=== PATIENT | female | born 1975 | race Two or more races ===

== ENCOUNTER 2018-05-08 19:34 | Emergency (ER) | payer OTHER ==
--- NOTE | 2018-05-08 19:37 | PDOC ---
History of Present Illness - History of Present Illness Initial Comments: 05/08/18 20:03 The patient is a 43 year old female with a significant past medical history of arthritis who presents to the ER with a rash for the past month. Patient states she was taking arthritis medication but stopped taking it two months ago. Patient also saw an operator helper within the past month who told her the only allergy he found was to pollen. Patient has been using claritin at home with minimal improvement. Patient has not returned to the operator helper for a follow up. Patient was seen at an urgent care in [place] yesterday but could not determine what may be causing the rash. The urgent care sent a prescription for prednisone to her pharmacy which she has not picked up yet. The patient denies chest pain, shortness of breath, headache, and dizziness. Denies fever, chills, nausea, vomit, diarrhea, and constipation. Denies dysuria, frequency, urgency, and hematuria. Allergies: NKA Past surgical history: None reported. Social history: No reported alcohol, drug, or cigarette use. Adult ROS General: No fevers or chills, no weakness, no weight loss HEENT: No change in vision. No sore throat,. No ear pain CardioVascular: No chest pain or shortness of breath Respiratory:No cough, or wheezing. Gastrointestinal: no nausea, vomiting, diarrhea or constipation, No rectal bleeding Genitourinary: No dysuria, hematuria, or frequency Musculoskeletal: No joint or muscle pain or swelling Neurologic: No headache, vertigo, dizziness or loss of consciousness Psychiatric: nor depression Skin: (+) Rash. No easy bruising Endocrine: no increased thirst or abnormal weight change Allergic: no skin or latex allergy All other systems reviewed and normal Basic PE GENERAL: The patient is awake, alert, and fully oriented, in no acute distress. HEAD: Normal with no signs of trauma. EYES: Pupils equal, round and reactive to light, extraocular movements intact, sclera anicteric, conjunctiva clear. EXTREMITIES: Normal range of motion, no edema. NEUROLOGICAL: Normal speech, normal gait. PSYCH: Normal mood, normal affect. SKIN: Warm, Dry, normal turgor. (+) Fine papular rash of the upper extremity bilaterally. <Devi Galicia - Last Filed: 05/08/18 20:03> - General History Source: Patient Exam Limitations: No Limitations - History of Present Illness Initial Comments: 05/08/18 20:24 A portion of this note was documented by scribe services under my direction. I have reviewed the details of the note, within reason, and agree with the documentation. The case summary and management plan written by me. Assessment and plan: This is a 43-year-old female comes in complaining of a rash times one month. Patient has seen an operator helper and was told that it may be secondary to pollens. Patient also has a striper spray gun who thought it may be secondary to some of her rheumatological medication so stopped her rheumatological medications 2 months prior to the rash however. Patient went to an urgent care center today and was given prednisone which she did not take beyond the dose given at the urgent care center as she thought it might make the rash worse because that was one of the medicine she was taking for her rheumatoid arthritis. Patient is instructed go ahead and take the prednisone as it actually is good for an ALLERGIC reaction. Also I recommended to patient that she continue her Claritin she can try some Benadryl to see if that is more helpful and follow-up with her operator helper and a gasket former. <Kelle Lynn I - Last Filed: 05/08/18 20:27> - General Chief Complaint: Rash Stated Complaint: RASH X 1 MONTH Time Seen by Provider: 05/08/18 19:37 Past History <Devi Galicia - Last Filed: 05/08/18 20:03> <Kelle Lynn I - Last Filed: 05/08/18 20:27> - Past Medical History Allergies/Adverse Reactions: Allergies Allergy/AdvReac Type Severity Reaction Status Date / Time No Known Allergies Allergy Verified 05/08/18 19:36 Home Medications: Ambulatory Orders NK [No Known Home Medication] 05/08/18 *Physical Exam - Vital Signs Last Vital Signs Temp Pulse Resp BP Pulse Ox 98.1 F 81 16 114/72 100 05/08/18 19:37 05/08/18 19:37 05/08/18 19:37 05/08/18 19:37 05/08/18 19:37 <Devi Galicia - Last Filed: 05/08/18 20:03> *DC/Admit/Observation/Transfer - Attestations Scribe Attestion: 05/08/18 20:08 Documentation prepared by Devi Galicia, acting as medical authorization specialist for Kelle Lynn MD. <Devi Galicia - Last Filed: 05/08/18 20:03> - Discharge Dispostion Decision to Admit order: No <Kelle Lynn I - Last Filed: 05/08/18 20:27> Diagnosis at time of Disposition: Rash and nonspecific skin eruption - Discharge Dispostion Disposition: HOME Condition at time of disposition: Stable - Patient Instructions Additional Instructions: Call your operator helper in the morning and get an appointment to follow-up with your operator helper to see if there is anything they can do as far as additional testing to determine why you continue to have this rash and itching. Otherwise get the prescription filled for the prednisone at the pharmacy and take it as prescribed. Continue the Claritin or you can also take Benadryl. Return to the emergency department immediately with ANY new, persistent or worsening symptoms. Continue any medications as previously prescribed by your physician. You should follow up with your primary doctor as soon as possible regarding today's emergency department visit. . Please make sure your doctor reviews the results of your emergency evaluation. Thank you for coming to the Emergency Department today for your care. It was a pleasure to see you today. Please note that your evaluation is INCOMPLETE until you follow-up with your doctor.
[2018-05-08 19:41] VITALS: BP 114/72; PULSE 81; TEMP 98.1; BMI 19.5
== END 2018-05-08 19:59 | disposition home or self-care (01) ==
LOC: FER 19:34
DX: R21 Rash and other nonspecific skin eruption (principal); M19.90 Unspecified osteoarthritis, unspecified site
CPT/HCPCS: 99281-25